=== PATIENT | female | born 1975 | race Caucasian/White ===

== ENCOUNTER 2018-07-15 20:19 | Emergency (ER) | payer BC ==
[~2018-07-15] VITALS: Ht 162.6 cm; Wt 63.5 kg
[2018-07-15 20:25] VITALS: BP_SYST 163
--- NOTE | 2018-07-15 21:00 | NUR ---
Patient to ER bed 5 to gown for evaluation. Side rails up. Report given to SARAH VALENZUELA.
--- NOTE | 2018-07-15 21:05 | NUR ---
Pt c/o laceration in between third and fourth digit s/p washing dishes and cereal bowl broke cutting patient's hand. laceration is about 8mm by 3mm. Pt denies any pain. No other injuries/complaints per patient or noted.
--- NOTE | 2018-07-15 21:08 | NUR ---
ER at bedside examining patient.
[2018-07-15] MEDS ORDERED: LIDOCAINE 1% 10 MG/ML, 20 ML MDV INJ ONE (21:15)
--- NOTE | 2018-07-15 21:30 | NUR ---
Patient has a 8mm by 3mm laceration to right hand. Dr. Son applied sutures using sterile technique. Edges well approximated. Site cleansed with betadine. No bleeding noted. Pt tolerated well.
[2018-07-15] MEDS ORDERED: BACITRACIN 1 GM OINT TP ONE (21:34)
[2018-07-15 21:39] VITALS: BP_SYST 154
--- NOTE | 2018-07-15 22:02 | NUR ---
Patient given written and verbal discharge instructions and verbalizes understanding. ER MD discussed with patient the results and treatment provided. Patient in stable condition. ID arm band removed. No Rx given. Patient educated on pain management and to follow up with PMD. Pain Scale 0. Opportunity for questions provided and answered. Medication side effect fact sheet provided.
== END 2018-07-15 22:02 | disposition home or self-care (01) ==
LOC: SED 20:19
DX: S61.411A Laceration without foreign body of right hand, initial encounter (principal); Z88.6 Allergy status to analgesic agent; W26.8XXA Contact with other sharp object(s), not elsewhere classified, initial encounter; Y93.89 Activity, other specified; Y92.89 Other specified places as the place of occurrence of the external cause; Y99.8 Other external cause status
CPT/HCPCS: 12001; 99283; J2001; J7030